=== PATIENT | female | born 1960 | race Two or more races ===

== ENCOUNTER 2020-04-24 20:10 | Inpatient (IN) | payer MEDICAID ==
[~2020-04-24] VITALS: Ht 170.2 cm; Wt 77.9 kg
[2020-04-24] MEDS ORDERED: ASPIRIN 325 MG TABLET PO ONE (20:23)
--- NOTE | 2020-04-24 20:23 | NUR ---
BIB BY [facility] FROM [facility] FOR NEURO EVAL. PATIENT REPORTS LEFT FACIAL/LUE PARATHESIA STARTING AT 6:15AM TODAY. HAD STROKE EVAL AT [facility] WITH -CT SCAN, FSBS 218 ON ARRIVAL HERE NO FOCAL WEAKNESS PER WRITERS EXAM WELL ER PROVIDER (DR. KAUFMAN) DOES HAVE SUBJECTIVE LEFT FACE AND LEFT ARM PARATHESIA WELL HEADACHE RATED AT 10/10 PER ER PROVIDER TO ADMIT FOR NEUROLOGY WORKUP TO MEDICATE FOR HEADACHE
--- NOTE | 2020-04-24 20:25 | NUR ---
REPORT TO JAMES HILTON
[2020-04-24] MEDS ORDERED: LISI2.5T PO (20:30)
[2020-04-24] MEDS ORDERED: CALC-534 PO (20:30)
[2020-04-24] MEDS ORDERED: ASCO500W4 PO (20:30)
[2020-04-24] MEDS ORDERED: MULT-90 PO (20:34)
[2020-04-24] MEDS ORDERED: PIOG30TA67 PO (20:34)
[2020-04-24] MEDS ORDERED: SIMV20TA19 PO (20:34)
[2020-04-24] MEDS ORDERED: NITR100C6 PO (20:34)
[2020-04-24] MEDS ORDERED: ASPIRIN 325 MG TABLET EC ONE (20:36)
[2020-04-24] MEDS ORDERED: PLEASE ENTER ALLERGIES MC SCH (21:00)
[2020-04-24] MEDS ORDERED: ENALAPRILAT 1.25 MG/ML, 2ML IV PRN (21:00)
[2020-04-24] MEDS ORDERED: BISACODYL 10 MG SUPP PR PRN (21:00)
[2020-04-24] MEDS ORDERED: SIMVASTATIN 20 MG TABLET PO SCH (21:00)
[2020-04-24] MEDS ORDERED: SIMVASTATIN 40 MG TABLET PO SCH (21:00)
[2020-04-24] MEDS ORDERED: DOCUSATE 100 MG CAPSULE PO PRN (21:00)
[2020-04-24] MEDS ORDERED: POLYETHYLENE GLYCOL 17 GM PACKET PO PRN (21:00)
[2020-04-24] MEDS ORDERED: ONDANSETRON 4 MG TABLET PO PRN (21:00)
[2020-04-24] MEDS ORDERED: ACETAMINOPHEN 650 MG/20.3 ML UDC PO PRN (21:00)
[2020-04-24 21:43] LABS: ALANINE AMINOTRANSFERASE 51 U/L (12-78); ALBUMIN 3.4 g/dL (3.4-5.0); ANION GAP 6 mmol/L (5-15); CHLORIDE 110 mmol/L (98-107); CREATININE 0.75 mg/dL (0.55-1.02)
[2020-04-24 21:48] LABS: ALKALINE PHOSPHATASE 107 U/L (45-117); BILIRUBIN,TOTAL 0.4 mg/dL (0.2-1.0); TOTAL PROTEIN 7.3 g/dL (6.4-8.2); TROPONIN I < 0.015 ng/mL (0.000-0.045)
--- NOTE | 2020-04-24 23:14 | NUR ---
REPORT GIVEN TO JOSEPH
[2020-04-24 23:31] VITALS: BP 135/73
[2020-04-25 03:02] VITALS: BP 94/59
[2020-04-25 04:56] LABS: BASOPHILS # (AUTO) 0.03 x10^3/uL (0-0.1); BASOPHILS % (AUTO) 0 % (0-1); EOSINOPHILS # (AUTO) 0.07 x10^3/uL (0-0.4); EOSINOPHILS % (AUTO) 1 % (1-7); LYMPHOCYTES # (AUTO) 2.85 x10^3/uL (1-3.4); LYMPHOCYTES % (AUTO) 40 % (22-44); MD NO; MEAN CORPUSCULAR HEMOGLOBIN 30.7 pg (27.0-34.8); MEAN CORPUSCULAR HGB CONC 33.1 g/dL (32.4-35.8); MEAN PLATELET VOLUME 7.6 fL (7.4-10.4); MONOCYTES % (AUTO) 7 % (2-9); NEUTROPHILS # (AUTO) 3.63 x10^3/uL (1.8-6.8); NEUTROPHILS % (AUTO) 51 % (42-75); PLATELET COUNT 255 x10^3/uL (130-400); RED BLOOD COUNT 4.22 x10^6/uL (3.82-5.3); RED CELL DISTRIBUTION WIDTH 14.2 % (9.6-15.2)
[2020-04-25 05:08] LABS: CHLORIDE 110 mmol/L (98-107)
[2020-04-25 05:14] LABS: ALANINE AMINOTRANSFERASE 45 U/L (12-78); ALBUMIN 3.3 g/dL (3.4-5.0); ALKALINE PHOSPHATASE 95 U/L (45-117); ANION GAP 7 mmol/L (5-15); BILIRUBIN,TOTAL 0.5 mg/dL (0.2-1.0); CALCIUM 8.9 mg/dL (8.5-10.1); CHOL/HDL RATIO 3.1; CHOLESTEROL, TOTAL 116 mg/dL (140-239); CREATININE 0.69 mg/dL (0.55-1.02); HDL CHOL % 32 % (28-40); HDL CHOLESTEROL (DIRECT) 37 mg/dL (40-60); LDL CHOLESTEROL,CALCULATED 58 mg/dL (54-169); LDL/HDL RATIO 1.6 (0.5-3.0); TOTAL PROTEIN 6.7 g/dL (6.4-8.2); TRIGLYCERIDES 105 mg/dL (50-200); VLDL CHOLESTEROL 21 mg/dL (0-25)
[2020-04-25 08:10] VITALS: BP 105/65
[2020-04-25] MEDS ORDERED: PIOGLITAZONE 15 MG TABLET PO SCH (09:00)
[2020-04-25] MEDS ORDERED: LISINOPRIL 5 MG TABLET PO SCH (09:00)
[2020-04-25] MEDS ORDERED: ASCORBIC ACID 500 MG TABLET PO SCH (09:00)
[2020-04-25] MEDS ORDERED: CALCIUM/VITAMIN D3 250-125 TABLET PO SCH (09:00)
[2020-04-25] MEDS ORDERED: MULTIVITAMIN 1 TABLET PO SCH (09:00)
[2020-04-25] MEDS ORDERED: NITROFURANTOIN (MACROBID) 100 MG CAPSULE PO SCH (09:00)
[2020-04-25] MEDS ORDERED: ASPIRIN 81 MG TABLET CHEW PO/NG SCH (09:00)
--- NOTE | 2020-04-25 09:44 | NUR ---
D/C REC: Home Addendum: 04/25/20 at 0945 by Opal MADERA Amended: Links added.
[2020-04-25 12:41] VITALS: BP 117/62
[2020-04-25] MEDS ORDERED: ACET650S21 PO (16:33)
[2020-04-25] MEDS ORDERED: ATORVASTATIN 40 MG TABLET PO SCH (21:00)
[2020-04-26] MEDS ORDERED: INSULIN LISPRO 100 UNITS/ML, PEN SQ-INSULIN SCH (07:00)
== END 2020-04-25 18:15 | disposition home or self-care (01) | DRG 54 ==
LOC: ED 20:40 → EDIP 21:19 → 5SO 23:22
PROVIDERS: ADMIT Internal Medicine; ATTEND Internal Medicine
DX: R51 Headache (principal); E11.9 Type 2 diabetes mellitus without complications; E78.5 Hyperlipidemia, unspecified; I10 Essential (primary) hypertension; M19.90 Unspecified osteoarthritis, unspecified site; Z80.3 Family history of malignant neoplasm of breast; Z82.3 Family history of stroke; Z85.3 Personal history of malignant neoplasm of breast; Z90.11 Acquired absence of right breast and nipple; Z88.8 Allergy status to other drugs, medicaments and biological substances
CPT/HCPCS: 36415; 70551; 80053; 80061; 82962; 83036; 84484; 85025; 93306; 93880; 99285; G0378